=== PATIENT | female | born 1970 | race American Indian/Alaskan Native ===

== ENCOUNTER 2021-02-21 13:20 | Emergency (ER) | payer OTHER ==
[2021-02-21] MEDS ORDERED: ACETAMINOPHEN 325 MG TAB PO ONE (14:07)
--- NOTE | 2021-02-21 14:07 | Event Note ---
ED Screening Note ED Screening Note: states she has been sick for week +fatigue, fever, dry cough, decreased appetite, SOB no vomiting or diarrhea, no CP, no abd pain, no urinary symptoms +sick contact with daughter with COVID 19 awaiting her test results PMHx: HTN allergy: none LNMP: 01/30/2021 This initial assessment/diagnostic orders/clinical plan/treatment(s) is/are subject to change based on patients health status, clinical progression and re- assessment by fellow clinical providers in the ED. Further treatment and workup at subsequent clinical providers discretion. Patient/guardian urged not to elope from the ED as their condition may be serious if not clinically assessed and managed. Initial orders include: labs, CXR, tylenol given
--- NOTE | 2021-02-21 14:37 | XRay Report ---
CHEST 2 VIEWS INDICATION / CLINICAL INFORMATION: cough, fever. COMPARISON: None available. FINDINGS: SUPPORT DEVICES: None. HEART / MEDIASTINUM: No significant abnormality. LUNGS / PLEURA: Moderate streaky bilateral parenchymal disease characteristic for pneumonia No pneumo thorax. ADDITIONAL FINDINGS: No significant additional findings. IMPRESSION: 1. Probable bilateral Covid pneumonia Signer Name: Maco Marino MD Signed: 02/21/2021 2:32 PM Workstation Name: [id number]
[2021-02-21 15:07] LABS: Basophils % (Auto) 0.4 % (0.0-1.8); Hematocrit 35.7 % (30.3-42.9); Hemoglobin 12.1 gm/dl (10.1-14.3); Lymphocytes % (Auto) 20.1 % (13.4-35.0); Mean Corpuscular HGB Conc 34 % (30-34); Mean Corpuscular Volume 84 fl (79-97); Monocytes # (Auto) 0.4 K/mm3 (0.0-0.8); Monocytes % (Auto) 8.1 % (0.0-7.3); Platelet Count 232 K/mm3 (140-440); Red Blood Count 4.26 M/mm3 (3.65-5.03); Red Cell Distribution Width 13.4 % (13.2-15.2)
[2021-02-21 15:29] LABS: Alanine Aminotransferase 18 units/L (7-56); Albumin 3.5 g/dL (3.9-5); BUN/Creatinine Ratio 9; Blood Urea Nitrogen 8 mg/dL (7-17); Calcium 8.4 mg/dL (8.4-10.2); Hemolysis Index 4
[2021-02-21] MEDS ORDERED: AZITHROMYCIN/NS 500 MG/250 ML 500 MG/250 ML BAG IV ONE (15:54)
[2021-02-21] MEDS ORDERED: SODIUM CHLORIDE 0.9% 1000 ML 1,000 ML IV ONE (15:54)
--- NOTE | 2021-02-21 16:04 | Emergency Department Report ---
Minor Respiratory - HPI Minor Respiratory: Yes Able to Tolerate Fluids, Yes Cough, Yes Shortness of Breath, Yes Fever, No Rhinorrhea, No Sore Throat, No Ear Pain, No Sick Contacts, No Hemoptysis, No Chest Pain <JAMIESTEEAMY Peyton - Last Filed: 02/21/21 16:06> <JO ALATORRE - Last Filed: 02/21/21 18:53> - HPI Chief Complaint: Fever Stated Complaint: FEVER/CHILLS/BODYACHES Time Seen by Provider: 02/21/21 14:04 ED Review of Systems ROS: Stated complaint: FEVER/CHILLS/BODYACHES Other details as noted in HPI Comment: All other systems reviewed and negative <ELIESERADRIANAAMY Peyton - Last Filed: 02/21/21 16:06> ROS: Stated complaint: FEVER/CHILLS/BODYACHES Other details as noted in HPI <JO ALATORRE - Last Filed: 02/21/21 18:53> ED Past Medical Hx - Past Medical History Hx Hypertension: Yes - Surgical History Past Surgical History?: Yes Additional Surgical History: TUBAL LIG - Family History Family history: no significant - Social History Smoking Status: Never Smoker Substance Use Type: None <ELIESERADRIANAAMY Peyton - Last Filed: 02/21/21 16:06> <JO ALATORRE - Last Filed: 02/21/21 18:53> - Medications Home Medications: Home Medications Medication Instructions Recorded Confirmed Last Taken Type Azithromycin [Zithromax Z-MICHAELA] 250 mg PO DAILY #6 tablet 02/21/21 Unknown Rx predniSONE [Deltasone] 20 mg PO DAILY #5 tablet 02/21/21 Unknown Rx Minor Respiratory Exam - Exam General: Vital signs noted. No distress. Alert and acting appropriately. HEENT: Yes Moist Mucous Membranes, No Pharyngeal Erythema, No Pharyngeal Ex udates, No Rhinorrhea, No Conjuctival Injection, No Frontal Tenderness, No Maxillary Tenderness Ear: Neither TM Bulge, Neither TM Erythema, Neither EAC Pain, Neither EAC Disch arge Neck: Yes Supple, No Adenopathy Lungs: Yes Good Air Exchange, No Wheezes, No Ronchi, No Stridor, No Cough, No Labored Respirations, No Retractions, No Use of Accessory Muscles, No Other Abnormal Lung Sounds Heart: Yes Regular, No Murmur Abdomen: Yes Normal Bowel Sounds, No Tenderness, No Peritoneal Signs Skin: No Rash, No Edema Neurologic: Alert and oriented, no deficits. Musculoskeletal: Unremarkable. <AMY TONG - Last Filed: 02/21/21 16:06> - Exam General: Vital signs noted. No distress. Alert and acting appropriately. Neurologic: Alert and oriented, no deficits. Musculoskeletal: Unremarkable. <JO ALATORRE - Last Filed: 02/21/21 18:53> ED Course Vital Signs 02/21/21 13:42 Temperature 102.8 F H Pulse Rate 102 H Respiratory 20 Rate Blood Pressure 109/70 O2 Sat by Pulse 95 Oximetry <AMY TONG - Last Filed: 02/21/21 16:06> Vital Signs 02/21/21 02/21/21 13:42 18:48 Temperature 102.8 F H 99.6 F Pulse Rate 102 H 87 Respiratory 20 20 Rate Blood Pressure 109/70 Blood Pressure 127/73 [Right] O2 Sat by Pulse 95 92 Oximetry - Reevaluation(s) Reevaluation #1: 02/21/21 18:51 Patient has been reassessed by this provider. Patient shows no signs of shortness of breath with ambulation. She was satting at 90% with a heart rate of 102 on ambulation. Patient is shows no signs of distress. <JO ALATORRE - Last Filed: 02/21/21 18:53> ED Medical Decision Making - Lab Data Result diagrams: 02/21/21 14:45 02/21/21 14:45 - Radiology Data Radiology results: report reviewed, image reviewed PNA - Medical Decision Making Labs 02/21/21 02/21/21 02/21/21 14:45 14:45 14:45 WBC 5.1 RBC 4.26 Hgb 12.1 Hct 35.7 MCV 84 MCH 28 MCHC 34 RDW 13.4 Plt Count 232 Lymph % (Auto) 20.1 [place] % (Auto) 8.1 H Eos % (Auto) 0.0 Baso % (Auto) 0.4 Lymph # (Auto) 1.0 L [place] # (Auto) 0.4 Eos # (Auto) 0.0 Baso # (Auto) 0.0 Seg Neutrophils % 71.4 H Seg Neutrophils # 3.6 Sodium 136 L Potassium 3.6 Chloride 97.8 L Carbon Dioxide 26 Anion Gap 16 BUN 8 Creatinine 0.9 Estimated GFR > 60 BUN/Creatinine Ratio 9 Glucose 110 H Calcium 8.4 Total Bilirubin 0.40 AST 37 ALT 18 Alkaline Phosphatase 79 Total Protein 7.5 Albumin 3.5 L Albumin/Globulin Ratio 0.9 HCG, Qual Negative Vital Signs 02/21/21 13:42 Temperature 102.8 F H Pulse Rate 102 H Respiratory 20 Rate Blood Pressure 109/70 O2 Sat by Pulse 95 Oximetry - Differential Diagnosis RO COVID <AMY TONG Peyton - Last Filed: 02/21/21 16:06> - Lab Data Result diagrams: 02/21/21 14:45 02/21/21 14:45 <JO ALATORRE Stacie - Last Filed: 02/21/21 18:53> Critical care attestation.: If time is entered above; I have spent that time in minutes in the direct care of this critically ill patient, excluding procedure time. <AMY TONG A - Last Filed: 02/21/21 16:06> Critical care attestation.: If time is entered above; I have spent that time in minutes in the direct care of this critically ill patient, excluding procedure time. <JO ALATORRE - Last Filed: 02/21/21 18:53> ED Disposition Is pt being admited?: No Does the pt Need Aspirin: No Time of Disposition: 16:04 <AMY TONG - Last Filed: 02/21/21 16:06> <JO ALATORRE - Last Filed: 02/21/21 18:53> Clinical Impression: Pneumonia, COVID-19 Disposition: DC-01 TO HOME OR SELFCARE Condition: Stable Instructions: COVID-19 Frequently Asked Questions, COVID-19, Bacterial Pneumonia (ED) Additional Instructions: SOCIAL DISTANCING RAPID COVID TESTING IF YOU DESIRE AT OUTPUT COVID TESTING STATIONS MOTRIN AND TYLENOL ALTERNATING FOR FEVER STAY WELL HYDRATED MEDS ORDERED TODAY FOLLOW UP WITH PCP REERRAL BELOW YOU SHOULD SEE HIM NEXT WEEK TO BE SURE YOU ARE GETTING BETTER AVOID YOUNG, OLD AND IMMUNE COMPROMISED PEOPLE FOR COVID IS MOST LIFE THREATENING FOR THEM. MEDS ORDERED TODAY Prescriptions: predniSONE [Deltasone] 20 mg PO DAILY #5 tablet Azithromycin [Zithromax Z-MICHAELA] 250 mg PO DAILY #6 tablet Referrals: ALESHA FLORES MD [Staff Physician] - 3-5 Days Forms: Work/School Release Form(ED)
[2021-02-21 18:49] VITALS: BP 127/73
== END 2021-02-21 19:01 | disposition home or self-care (01) ==
LOC: ED 13:20
DX: U07.1 COVID-19 (principal); J18.9 Pneumonia, unspecified organism; I10 Essential (primary) hypertension; Z79.899 Other long term (current) drug therapy; Z98.51 Tubal ligation status
CPT/HCPCS: 36415; 71046; 80053; 84703; 85025; 96365; 99284; J0456; J7030